=== PATIENT | female | born 1990 | race Caucasian/White ===

== ENCOUNTER 2017-01-15 17:19 | Emergency (ER) | payer OTHER ==
[2017-01-15 17:29] VITALS: BP 125/83
--- NOTE | 2017-01-15 18:09 | UC ---
Complaint Female HPI - HPI Summary HPI Summary: Pt is (2 spontaneous abortions, unknown how far along), most recent and live was February 2015 -- at that time had tubal ligation. Was having normal periods every month (not sure how many days in usual cycle), then had 3 months of no period until late November. Had about 5 days of normal, period-like bleeding that started heavy and got pearler. About two weeks later, around 12/30, pt started having heavy vag bleeding with large clots. Bleeding has lightened up but still hasn't stopped 2 weeks later. Denies significant pain , back pain, fever, fainting, or vomiting. Called her normal face worker who suggested that she should have test in case of ectopic or tubal failure. Had urine preg tests in the past that were negative when she was actually . - History Of Current Complaint Chief Complaint: UCGU Stated Complaint: BLEEDING Time Seen by Provider: 01/15/17 17:33 Hx Obtained From: Patient Hx Last Menstrual Period: now Onset/Duration: Sudden Onset, Lasting Weeks Timing: Constant Severity Initially: Moderate Severity Currently: Mild Aggravating Factor(s): Nothing Alleviating Factor(s): Nothing Associated Signs And Symptoms: Positive: Vaginal Bleeding/Discharge Related Hx: - 5, Para - 3 - Allergies/Home Medications Allergies/Adverse Reactions: Allergies Allergy/AdvReac Type Severity Reaction Status Date / Time Penicillins Allergy Severe Rash Verified 01/15/17 17:29 Aspirin Allergy Intermediate Rash Verified 01/15/17 17:29 PMH/Surg Hx/FS Hx/Imm Hx - Additional Past Medical History Additional PMH: "glaucoma" Respiratory History: Asthma - Surgical History Surgical History: Yes Surgery Procedure, Year, and Place: x2 - Family History Known Family History: Negative: Blood Disorder - Social History Lives: With Family Alcohol Use: None Substance Use Type: None Substance Use Comment - Amount & Last Used: no substance use or alcohol use that pt reports Smoking Status (MU): Former Smoker Type: Cigarettes Amount Used/How Often: quit 3 months ago Have You Smoked in the Last Year: No Household Exposure Type: Cigarettes - Immunization History Most Recent Influenza Vaccination: 02/2015 Most Recent Tetanus Shot: 2015 Most Recent Pneumonia Vaccination: never Review of Systems Constitutional: Negative Skin: Negative Eyes: Negative ENT: Negative Respiratory: Negative Cardiovascular: Negative Gastrointestinal: Negative Genitourinary: Other - vaginal bleeding Motor: Negative Neurovascular: Negative Musculoskeletal: Negative Neurological: Negative Psychological: Negative All Other Systems Reviewed And Are Negative: Yes Physical Exam Triage Information Reviewed: Yes Appearance: No Pain Distress, Obese Vital Signs: Initial Vital Signs Temp 98.7 F 01/15/17 17:24 Pulse 95 01/15/17 17:24 Resp 18 01/15/17 17:24 BP 125/83 01/15/17 17:24 Pulse Ox 100 01/15/17 17:24 Vital Signs Reviewed: Yes Eye Exam: Other - PERRL Eyes: Positive: Conjunctiva Clear, Other: - black/goel discoloration on L upper face and on L sclera ENT Exam: Normal ENT: Positive: Normal ENT inspection, Hearing grossly normal, Pharynx normal, TMs normal. Negative: Tonsillar swelling, Tonsillar exudate Dental Exam: Normal Neck exam: Normal Neck: Positive: Supple, Nontender, No Lymphadenopathy Respiratory Exam: Normal Respiratory: Positive: Chest non-tender, Lungs clear, Normal breath sounds, No respiratory distress, No accessory muscle use Cardiovascular Exam: Normal Cardiovascular: Positive: RRR, No Murmur Abdomen Description: Positive: Nontender, Soft. Negative: CVA Tenderness (R), CVA Tenderness (L) Musculoskeletal Exam: Normal Neurological Exam: Normal Neurological: Positive: Alert Psychological Exam: Normal Skin Exam: Normal Complaint Female Dx - Course Course Of Treatment: Discussed importance of ruling out ectopic and assessing possible level of anemia tonight. Pt decided to go to [facility] for further testing. - Differential Dx/Diagnosis Provider Diagnoses: vaginal bleeding Discharge - Discharge Plan Condition: Stable Disposition: HOME Patient Education Materials: Dysfunctional Uterine Bleeding (ED) Referrals: Carmen Bolton NP [Primary Care Provider] - Additional Instructions: As we discussed, you need confirmation tonight that you are not . It would also be prudent to check your blood levels to make sure you are not getting anemic. If you become very dizzy or pass out please dial 911.
== END 2017-01-15 18:00 | disposition home or self-care (01) ==
LOC: UCEAST 17:19
DX: N93.9 Abnormal uterine and vaginal bleeding, unspecified (principal); Z87.891 Personal history of nicotine dependence
CPT/HCPCS: 99211; G0463

== ENCOUNTER 2018-05-16 09:33 | Emergency (ER) | payer SELFPAY ==
[2018-05-16 09:46] VITALS: BP 136/92
--- NOTE | 2018-05-16 11:04 | UC ---
Complaint Female HPI - HPI Summary HPI Summary: 27 y/o female presents to the urgent care c/o left side lower back pain on and off for the past 3 weeks. Pt reports symptoms worsen after her her period ended 2 days ago. LMP:05/10/2018. Pt states also burning and frequency on urination. Pain is 5/10. pain is dull ache and radiates to her lower abdomen on urination. She has felt dizzy since yesterday, however she has not been drinking fluids. Her left eye has Hx of Glaucoma w/ a bruise over the periorbital area and forehead, but she states is is increasing in size and now developing in the Rt eye. She experienced mild cloudiness in her left eye, but no pain. Pt denies headache, photophobia, dizziness now, fever, SOB, chest pain, abdominal pain, N/ V/D. She has not taking anything to alleviate symptoms. - History Of Current Complaint Chief Complaint: UCBackPain Stated Complaint: L SIDE COMPLAINT Time Seen by Provider: 05/16/18 10:20 Hx Obtained From: Patient Hx Last Menstrual Period: 05/10/2018 ?: No Onset/Duration: Gradual Onset, Lasting Weeks - 3 weeks on and off, Resolved, Worse Since - 2 days Timing: Intermittent, Lasting Seconds Severity Initially: Mild Severity Currently: Moderate Pain Intensity: 5 Pain Scale Used: 0-10 Numeric Character: Burning Aggravating Factor(s): Urination Alleviating Factor(s): Nothing Associated Signs And Symptoms: Positive: Back Pain - left side lower back pain. Negative: Fever, Vaginal Bleeding/Discharge, Vaginal Discharge, Genital Swelling, Genital Blisters - Risk Factors Ectopic Risk Factor: Negative Ovarian Torsion Risk Factor: Negative - Allergies/Home Medications Allergies/Adverse Reactions: Allergies Allergy/AdvReac Type Severity Reaction Status Date / Time aspirin Allergy Rash Verified 05/16/18 09:46 Penicillins Allergy Rash Verified 05/16/18 09:46 Home Medications: Home Medications Albuterol HFA INHALER* [Ventolin HFA Inhaler*] 1 puff INH Q4H PRN 05/16/18 [ History Confirmed 05/16/18] Fluticasone HFA 110 mcg(NF) [Flovent HFA 110 mcg(NF)] 1 puff INH BID 05/16/18 [ History Confirmed 05/16/18] PMH/Surg Hx/FS Hx/Imm Hx - Additional Past Medical History Additional PMH: Left eye glaucoma Previously Healthy: Yes Other Endocrine History: Anemia Cardiovascular History: Deep Vein Thrombosis - during Psychological History: Anxiety - Surgical History Surgical History: Yes Surgery Procedure, Year, and Place: x3, tubal ligation, novasure and d &c - Family History Known Family History: Positive: Cardiac Disease, Hypertension, Diabetes Negative: Blood Disorder Family History: DVT, cancer - Social History Occupation: Unemployed Lives: With Family Alcohol Use: None Substance Use Type: Marijuana Substance Use Comment - Amount & Last Used: 2 times a week Smoking Status (MU): Light Every Day Tobacco Smoker Type: Cigarettes Amount Used/How Often: quit 3 months ago Have You Smoked in the Last Year: No Household Exposure Type: Cigarettes - Immunization History Most Recent Influenza Vaccination: 02/2015 Most Recent Tetanus Shot: 2014 Most Recent Pneumonia Vaccination: never Review of Systems All Other Systems Reviewed And Are Negative: Yes Constitutional: Positive: Negative Skin: Positive: Negative Eyes: Positive: Other - left eye w/ some cloudiness and a bruise around periorbital area, forehead and radiating to the RT eye ENT: Positive: Negative Respiratory: Positive: Negative Cardiovascular: Positive: Negative Gastrointestinal: Positive: Negative Genitourinary: Positive: Dysuria, Frequency, Urgency Motor: Positive: Negative Neurovascular: Positive: Negative Musculoskeletal: Positive: Negative Neurological: Positive: Negative Psychological: Positive: Negative Is Patient Immunocompromised?: No Physical Exam - Summary Physical Exam Summary: VITAL SIGNS: Reviewed. GENERAL: Patient is a well developed and nourished obese female who is sitting comfortable in the examining table. Patient is not in any acute respiratory distress. HEAD AND FACE: No signs of trauma. No ecchymosis, hematomas or skull depressions. No sinus tenderness. Eyes: Positive: left conjunctiva w/ a grayish discoloration. Visual acuity: WNL, Visual stout: full to confrontation. Positive periorbital and left side of fore head radiating to the medial aspect of the Rt eye w/ a hyper pigmented rash , non tender to palpation. no soft tissue swelling observed, PERRLA, EOMI intact w/out limitation or complaint of pain. eyelashes clear. no drainage observed. No ciliary flush. No chemosis, No photophobia. abnormal fundoscopic exam; no proptosis, exophthalmos, nystagmus. EARS: Hearing grossly intact. Ear canals and tympanic membranes are within normal limits. MOUTH: pharynx with no erythema, no exudates,no palatal petechiae. no B/L tonsillar enlargement Uvula in midline. NECK: Supple, trachea is midline, no lymphadenopathy, no JVD, no carotid bruit, no c-spine tenderness, neck with full ROM. CHEST: Symmetric, no tenderness at palpation LUNGS: Clear to auscultation bilaterally. No wheezing or crackles. CVS: Regular rate and rhythm, S1 and S2 present, no murmurs or gallops appreciated. ABDOMEN: Soft, non-tender. No signs of distention. No rebound no guarding, and no masses palpated. Bowel sounds are normal. BACK:no scoliosis or lesions, non tender to palpation, No B/L CVA tenderness EXTREMITIES: FROM in all major joints, no edema, no cyanosis or clubbing. NEURO: Alert and oriented x 3. No acute neurological deficits. Speech is normal and follows commands. SKIN: Dry and warm Triage Information Reviewed: Yes Vital Signs: Initial Vital Signs Temp 98.3 F 05/16/18 09:41 Pulse 100 05/16/18 09:41 Resp 18 05/16/18 09:41 BP 136/92 05/16/18 09:41 Pulse Ox 100 05/16/18 09:41 Complaint Female Dx - Course Course Of Treatment: 27 y/o female presents to the urgent care c/o left side lower back pain on and off for the past 3 weeks. Pt reports symptoms worsen after her her period ended 2 days ago. LMP:05/10/2018. Pt states also burning and frequency on urination. Pain is 5/10. pain is dull ache and radiates to her lower abdomen on urination. She has felt dizzy since yesterday, however she has not been drinking fluids. Her left eye has Hx of Glaucoma w/ a bruise over the periorbital area and forehead, but she states is is increasing in size and now developing in the Rt eye. She experienced mild cloudiness in her left eye, but no pain. Pt denies headache, photophobia, dizziness now, fever, SOB, chest pain , abdominal pain, N/V/D. She has not taking anything to alleviate symptoms. Hx obtained. Pt w/ Positive periorbital and left side of forehead radiating to the medial aspect of the Rt eye w/ a hyperpigmented rash, non tender to palpation. no soft tissue swelling observed, PERRLA, EOMI intact w/out limitation or complaint of pain. eyelashes clear. no drainage observed. No ciliary flush. No chemosis, No photophobia. Abnormal fundoscopic exam. Pt w/ Dysuria symptoms and abdomen WNL on examination. Pt is hemodynamically stable, Neurological exam WNL. UA and test ordered. UA results: Blood 1+, Leukoesterase trace. test: negative. Pt Rx Bactrim PO x 7 days. Pyridium 100mg PO TID x 2 days. Advised to increase fluid intake. Urine sent for culture if any abnormality Pt will be notified for further treatment. Pt advised If symptoms do not improve to return to the urgent care or f/u with PCP. I discussed Pt's symptoms w/ DR Dc who recommended to call Pt's opthalmologist. I spoke to Opthalmologist DR Ion Blanchard at [facility] and discussed Pt's symptoms and he stated he has been managing Pt's hyperpigmentation for the past month and he agreed to see Pt today for further management. Pt strongly advised to f/u w/ DR Blanchard since he is expecting her. Pt's BP is elevated today advised to decrease salt in diet, monitor BP and f/u with PCP for further management. D/C instructions explained. Pt understood and agreed. Left the clinic ambulating, hemodynamically stable, A&OX3. - Differential Dx/Diagnosis Differential Diagnosis/HQI/PQRI: Cervicitis, Ovarian Cyst, Pelvic Inflammatory Disease, , Renal Colic, Sexually Transmitted Disease, Ureteral Stone, Urinary Tract Infection, Other - glaucoma, Provider Diagnosis: UTI (urinary tract infection), Dysuria, Glaucoma, Hyperpigmentation of left eyelid, Elevated BP without diagnosis of hypertension - Physician Notifications Discussed Patient Care With: Dana Quiroz - Dr quiroz agreed w/ Pt's plan of care. Discharge - Sign-Out/Discharge Documenting (check all that apply): Patient Departure - D/C home All imaging exams completed and their final reports reviewed: No Studies - Discharge Plan Condition: Stable Disposition: HOME Prescriptions: Phenazopyridine TAB* [Pyridium 100 mg TAB*] 100 mg PO TID #6 tab Sulfamethox/Trimethoprim DS* [Bactrim DS 800/160 TAB*] 1 tab PO BID #14 tab Patient Education Materials: Urinary Tract Infection in Women (ED), Glaucoma ( ED), Low-Sodium Diet (ED) Referrals: Carmen Bolton NP [Primary Care Provider] - 3 Days Ion Blanchard MD [Medical Doctor] - As Soon As Possible Additional Instructions: 1- Please take Bactrim PO as directed . full course to avoid resistance. If not improvment of symptoms please f/u w/ your PCP in 3 days for further management 2- Take Pyridiun PO as directed to alleviate dysuria symptoms 3- I spoke to Dr Ion Blanchard your body welder for further management in your glaucoma and hyperpigmentation in your left eye. He is expecting you today. 4- Your BP is elevated today, please decrease salt in your diet and monitor BP and if it continues to be elevated please f/u w/ your PCP for further management. - Billing Disposition and Condition Condition: STABLE Disposition: Home - Attestation Statements Provider Attestation: I was available for consult. This patient was seen by the DINO. The patient was not presented to, seen by, or examined by me. -Rolf
--- NOTE | 2018-05-17 17:05 | UC ---
- Progress Note Progress Note: call patient and assure sx have resloved as urine did not grow out any clinically significant bacteria--- please ask patient to follow up if symptoms continue Course/Dx - Diagnoses Provider Diagnoses: UTI (urinary tract infection), Dysuria, Glaucoma, Hyperpigmentation of left eyelid, Elevated BP without diagnosis of hypertension Discharge - Sign-Out/Discharge Documenting (check all that apply): Post-Discharge Follow Up All imaging exams completed and their final reports reviewed: No Studies - Discharge Plan Condition: Stable Disposition: HOME Prescriptions: Phenazopyridine TAB* [Pyridium 100 mg TAB*] 100 mg PO TID #6 tab Sulfamethox/Trimethoprim DS* [Bactrim DS 800/160 TAB*] 1 tab PO BID #14 tab Patient Education Materials: Urinary Tract Infection in Women (ED), Glaucoma ( ED), Low-Sodium Diet (ED) Referrals: Ion Blanchard MD [Medical Doctor] - As Soon As Possible Carmen Bolton NP [Primary Care Provider] - 3 Days Additional Instructions: 1- Please take Bactrim PO as directed . full course to avoid resistance. If not improvment of symptoms please f/u w/ your PCP in 3 days for further management 2- Take Pyridiun PO as directed to alleviate dysuria symptoms 3- I spoke to Dr Ion Blanchard your retail cosmetics sales beauty advisor for further management in your glaucoma and hyperpigmentation in your left eye. He is expecting you today. 4- Your BP is elevated today, please decrease salt in your diet and monitor BP and if it continues to be elevated please f/u w/ your PCP for further management. - Billing Disposition and Condition Condition: STABLE Disposition: Home - Attestation Statements Provider Attestation: I was available for consult. This patient was seen by the DINO. The patient was not presented to, seen by, or examined by me. -Rolf
== END 2018-05-16 11:09 | disposition home or self-care (01) ==
LOC: UCEAST 09:33
DX: N39.0 Urinary tract infection, site not specified (principal); H02.7 Other and unspecified degenerative disorders of eyelid and periocular area; R03.0 Elevated blood-pressure reading, without diagnosis of hypertension; Z32.02 Encounter for pregnancy test, result negative; Z88.6 Allergy status to analgesic agent; Z88.0 Allergy status to penicillin; Z87.891 Personal history of nicotine dependence
CPT/HCPCS: 81003; 84702; 87086; 99212; G0463

== ENCOUNTER 2018-05-19 13:10 | Emergency (ER) | payer SELFPAY ==
[2018-05-19 15:51] LABS: ABS Basophils 0 10^3/ul (0-0.2); ABS Eosinophils 0.1 10^3/ul (0-0.6); ABS Lymphocytes 2.1 10^3/ul (1.0-4.8); ABS Monocytes 0.5 10^3/ul (0-0.8); ABS Nucleated RBC 0 10^3/ul; Eosinophil % 0.9 %; Hematocrit 45 % (35-47); Hemoglobin 15.3 g/dl (12.0-16.0); Lymphocyte % 27.5 %; Mean Corpuscular HGB Conc 34 g/dl (31-36); Mean Corpuscular Hemoglobin 30 pg (27-31); Mean Corpuscular Volume 90 fL (80-97); Mean Platelet Volume 7.9 fL (7.4-10.4); Nucleated Red Blood Cells % 0.4; Platelet Count 331 10^3/ul (150-450); Red Blood Count 5.04 10^6/ul (4.00-5.40); Red Cell Distribution Width 14 % (10.5-15); White Blood Count 7.8 10^3/ul (3.5-10.8)
--- NOTE | 2018-05-19 15:53 | ED ---
GI/ HPI - HPI Summary HPI Summary: This pt is a 27 y/o [facility]/o left flank pain for over a little over 1 moth now. Pt reports she went to urgent care yesterday and was prescribed Bactrim and Pyridium for a UTI. She also had a test that resulted negative. Pt was called today and was told to stop taking the antibiotics. She states her pain didn't "get too bad" until she began taking the pills. Additionally notes chest pain since taking these medications. Pt currently rates her flank pain, 7/10 in severity. Denies nausea, vomiting, diarrhea, constipation, fever, chills, SOB. Pt notes she has never had this pain in the past. Denies hx of kidney stones. Denies hx of back problems. She admits to marijuana use, the last time was 1 week ago. Denies alcohol and tobacco use. FHx: grandmother with Von Willebrand disease. - History of Current Complaint Chief Complaint: EDFlankPain Time Seen by Provider: 05/19/18 15:37 Stated Complaint: CHEST PAIN Hx Obtained From: Patient Hx Last Menstrual Period: 05/10/2018 Onset/Duration: Started Weeks Ago, Still Present Timing: Lasting Weeks Current Severity: Moderate - 7/10 Pain Intensity: 6 Location of Pain: Flank - left Associated Signs and Symptoms: Positive: Flank Pain - left, Chest Pain. Negative: Nausea, Vomiting, Constipation, Diarrhea, Fever, Other: - SOB Aggravating Factor(s): Nothing Alleviating Factor(s): Nothing - Allergy/Home Medications Allergies/Adverse Reactions: Allergies Allergy/AdvReac Type Severity Reaction Status Date / Time aspirin Allergy Rash Verified 05/19/18 13:35 Penicillins Allergy Rash Verified 05/19/18 13:35 PMH/Surg Hx/FS Hx/Imm Hx Endocrine/Hematology History: Denies: Hx Diabetes, Hx Thyroid Disease Cardiovascular History: Denies: Hx Hypertension Respiratory History: Reports: Hx Asthma Denies: Hx Chronic Obstructive Pulmonary Disease (COPD) GI History: Denies: Hx Ulcer Psychiatric History: Reports: Hx Anxiety, Hx Depression - Surgical History Surgery Procedure, Year, and Place: x3, tubal ligation, novasure and d &c Infectious Disease History: No Infectious Disease History: Denies: Hx Clostridium Difficile, Hx Hepatitis, Hx Human Immunodeficiency Virus (HIV), Hx of Known/Suspected MRSA, Hx Shingles, Hx Tuberculosis, Hx Known/ Suspected VRE, Hx Known/Suspected VRSA, History Other Infectious Disease, Traveled Outside the [place] in Last 30 Days - Family History Known Family History: Positive: Cardiac Disease, Hypertension, Diabetes Negative: Blood Disorder Family History: DVT, cancer. grandmother with Von Willebrand disease. - Social History Alcohol Use: None Substance Use Type: Reports: Marijuana Substance Use Comment - Amount & Last Used: 2 times a week Smoking Status (MU): Light Every Day Tobacco Smoker Type: Cigarettes Amount Used/How Often: quit 3 months ago Have You Smoked in the Last Year: No Review of Systems Negative: Fever, Chills Positive: Chest Pain Negative: Shortness Of Breath Negative: Vomiting, Diarrhea, Nausea, Other - constipation Positive: flank pain - left All Other Systems Reviewed And Are Negative: Yes Physical Exam - Summary Physical Exam Summary: VITAL SIGNS: Reviewed. GENERAL: Patient is a well-developed and nourished female who is lying comfortable in the stretcher. Patient is not in any acute respiratory distress. HEAD AND FACE: Normocephalic and atraumatic. EYES: PERRLA, EOMI x 2, No injected conjunctiva. EARS: Hearing grossly intact. Ear canals and tympanic membranes are WNL. MOUTH: Oropharynx within normal limits. NECK: Supple, trachea is midline, no adenopathy, no JVD. CHEST: Symmetric, no tenderness at palpation LUNGS: Clear to auscultation bilaterally. No wheezing or crackles. CVS: RRR, S1 and S2 present, no murmurs or gallops appreciated. ABDOMEN: Soft. No signs of distention. Positive bowel sounds. No rebound no guarding, and no masses palpated. No abdominal bruit or pulsations. Left costovertebral angle tenderness. Left flank tenderness. EXTREMITIES: FROM in all major joints, no edema, no cyanosis or clubbing. NEURO: Alert and oriented x 3. No acute neurological deficits. Speech is normal. SKIN: Dry and warm Triage Information Reviewed: Yes Vital Signs On Initial Exam: Initial Vitals Temp Pulse Resp BP Pulse Ox 98.4 F 90 18 108/71 98 05/19/18 13:29 05/19/18 13:29 05/19/18 13:29 05/19/18 13:29 05/19/18 13:29 Vital Signs Reviewed: Yes Diagnostics - Vital Signs Vital Signs Temp Pulse Resp BP Pulse Ox 05/19/18 15:18 97.8 F 100 18 99/83 100 05/19/18 13:29 98.4 F 90 18 108/71 98 - Laboratory Result Diagrams: 05/19/18 15:42 05/19/18 15:42 Lab Statement: Any lab studies that have been ordered have been reviewed, and results considered in the medical decision making process. - CT CT A/P CT Interpretation Completed By: Radiologist Summary of CT Findings: No evidence of obstructive uropathy is noted. No other masses or fluid collections are identified. ED physician reviewed radiology report. Re-Evaluation - Re-Evaluation First Eval Re-Evaluation Time: 18:04 Change: Improved Comment: Patient feels better. GIGU Course/Dx - Course Assessment/Plan: This pt is a 27 y/o female presenting to [facility] c/o left flank pain for over a little over 1 moth now. Pt reports she went to urgent care yesterday and was prescribed Bactrim and Pyridium for a UTI. She also had a test that resulted negative. Pt was called today and was told to stop taking the antibiotics. She states her pain didn't "get too bad" until she began taking the pills. Additionally notes chest pain since taking these medications. Pt currently rates her flank pain, 7/10 in severity. Denies nausea , vomiting, diarrhea, constipation, fever, chills, SOB. Pt notes she has never had this pain in the past. Denies hx of kidney stones. Denies hx of back problems. She admits to marijuana use, the last time was 1 week ago. Denies alcohol and tobacco use. FHx: grandmother with Von Willebrand disease. Blood work without any significant abnormality. test is negative. Urinalysis is negative for UTI. CT A/P impression: No evidence of obstructive uropathy is noted. No other mass or fluid collections are identified. In the ED course the patient was given IV fluids, she was given Toradol and Tylenol for the pain and her symptoms have significantly improved. Therefore the patient will be discharged home with follow-up with PCP. I discussed all the findings and test results with the patient. Patient was instructed to return to the emergency room immediately if any of the symptoms return or worsens. Plan of care was discussed with the patient and understands and agrees. All questions were answered at patient satisfaction. There were no further complaints or concerns. Lung exam before discharge: CTA B/L. Good air exchange. No wheezing or crackles heard. CVS: S1 and S2 present. No murmurs appreciated. Patient is alert and oriented x 3. Patient is hemodynamically stable. Patient will be discharged home with follow up PCP in the next 2-3 days - Diagnoses Provider Diagnoses: Flank pain Discharge - Sign-Out/Discharge Documenting (check all that apply): Patient Departure - Discharge - Discharge Plan Condition: Stable Disposition: HOME Patient Education Materials: Flank Pain (ED) Referrals: Carmen Bolton NP [Primary Care Provider] - 3 Days Additional Instructions: RETURN TO THE ED FOR ANY WORSENING OR NEW SYMPTOMS. - Billing Disposition and Condition Condition: STABLE Disposition: Home - Attestation Statements Document Initiated by Patrick: Yes Documenting Scribe: Latosha Herrera Provider For Whom Patrick is Documenting (Include Credential): Nicolás Sharpe MD Scribe Attestation: Latosha Anthony, scribed for Nicolás Sharpe MD on 05/19/18 at 1850. Scribe Documentation Reviewed: Yes Provider Attestation: The documentation as recorded by the Latosha hebert accurately reflects the service I personally performed and the decisions made by , Nicolás Sharpe MD Status of Scribe Document: Viewed
[2018-05-19 16:16] LABS: EGFR Non-African American 86.2 (>60)
[2018-05-19] MEDS ORDERED: Ketorolac INJ* 30 MG/ML 1 ML VIAL IV PUSH ONE (16:24)
[2018-05-19 17:54] LABS: Urine Appearance Cloudy; Urine Blood 1+ (Negative); Urine Color Yellow; Urine Ketones Negative (Negative); Urine Protein Negative (Negative); Urine Red Blood Cell Absent (Absent); Urine Specific Gravity 1.016 (1.010-1.030); Urine Urobilinogen Negative (Negative); Urine White Blood Cell Absent (Absent)
[2018-05-19] MEDS ORDERED: Acetaminophen TAB* 325 MG PO ONE (17:55)
[2018-05-19 18:19] VITALS: BP 103/69
== END 2018-05-19 18:19 | disposition home or self-care (01) ==
LOC: ED 13:10
DX: R10.9 Unspecified abdominal pain (principal); R07.89 Other chest pain; Z88.6 Allergy status to analgesic agent; Z88.0 Allergy status to penicillin; Z82.49 Family history of ischemic heart disease and other diseases of the circulatory system; Z83.3 Family history of diabetes mellitus; Z82.3 Family history of stroke; Z83.2 Family history of diseases of the blood and blood-forming organs and certain disorders involving the immune mechanism; Z87.891 Personal history of nicotine dependence
CPT/HCPCS: 36415; 74176; 80053; 81003; 81015; 84702; 85025; 86140; 96374; 99283; A9270-GY; J1885